=== PATIENT | male | born 1950 | race Caucasian/White ===

== ENCOUNTER 2017-01-12 07:45 | Emergency (ER) | payer MEDICARE, BC ==
[~2017-01-12] VITALS: Ht 162.6 cm; Wt 75.0 kg
[2017-01-12 07:54] VITALS: BP 130/77; PULSE 78; RESP 20; TEMP 99; O2SAT 95
[2017-01-12] MEDS ORDERED: STOO100C PO (08:17)
[2017-01-12] MEDS ORDERED: LEVE250 PO (08:17)
[2017-01-12] MEDS ORDERED: ONDA1TAB17 PO (08:17)
[2017-01-12] MEDS ORDERED: SULF1TAB23 PO (08:17)
[2017-01-12] MEDS ORDERED: ESOM1CAP6 PO (08:17)
--- NOTE | 2017-01-12 08:28 | PD ---
HPI Chief Complaint: Neuro Symptoms/ Deficits Time Seen by Provider: 07:55 Travel History International Travel<30 days: No Contact w/Intl Traveler<30days: No Traveled to known affect area: No History of Present Illness HPI This patient is vacationing from [place]. He has history of glioblastoma. He's been through surgery and chemotherapy and radiation for it. He had a recent MRI that shows that his tumor has reoccurred and his physician team doesn't have much more to offer and they advised him just to enjoy his last time here before he dies from the cancer. He's had right sided weakness for the last 2 weeks. He denies headache. He came to the emergency room because he had some tremulousness us morning for about or minutes.. He was awake and alert during it and watched his extremities trembling. There is no tongue biting or loss of consciousness or postictal state or incontinence. He does take Keppra as a preventative for seizures but is never had a seizure. Symptoms severity was moderate. No alleviating factors. Duration of the event 4 minutes PFSH Past Medical History Chemotherapy: Yes (brain tumor; last month) Social History Alcohol Use: No Tobacco Use: No Substance Use: No Allergies-Medications (Allergen,Severity, Reaction): Coded Allergies: Vancomycin (Verified Allergy, Severe, 01/12/17) swelling to IV site Reported Meds & Prescriptions Reported Meds & Active Scripts Active Reported Stool Softener (Docusate Sodium) 100 Mg Cap 1 Cap PO DAILY Nexium 24 HR (Esomeprazole DR) 20 Mg Capdr 20 Mg PO DAILY Ondansetron (Ondansetron HCl) 8 Mg Tab 8 Mg PO Q8HR PRN Sulfamethoxazole-Trimethoprim 800-160 Mg Tab 1 Tab PO BID PRN Keppra (Levetiracetam) 250 Mg Tab 500 Mg PO BID Review of Systems General / Constitutional: No: Fever Eyes: No: Visual changes HENT: No: Headaches Cardiovascular: No: Chest Pain or Discomfort Respiratory: No: Shortness of Breath Gastrointestinal: No: Abdominal Pain Genitourinary: No: Dysuria Musculoskeletal: Positive: Weakness, No: Pain Skin: No Rash Neurologic: Positive: Weakness, Tremor, No: Seizures Psychiatric: No: Depression Endocrine: No: Polydipsia Hematologic/Lymphatic: No: Easy Bruising Physical Exam Narrative GENERAL: Well-nourished, well-developed patient in no apparent distress. SKIN: Focused skin assessment reveals no rash and nodules. Skin is Warm and dry. HEAD: Atraumatic. Normocephalic. EYES: Pupils equal and round. No scleral icterus. No injection or drainage. ENT: No nasal bleeding or discharge. Mucous membranes pink and moist. NECK: Trachea midline. No JVD. CARDIOVASCULAR: Regular rate and rhythm. No murmur appreciated. RESPIRATORY: No accessory muscle use. Clear to auscultation. Breath sounds equal bilaterally. GASTROINTESTINAL: Abdomen soft, non-tender, nondistended. Hepatic and splenic margins not palpable. MUSCULOSKELETAL: No obvious deformities. No clubbing. No cyanosis. No edema. NEUROLOGICAL: Awake and alert. No obvious cranial nerve deficits. Motor exam shows weakness of the right arm and right leg when compared to the left. Normal speech. PSYCHIATRIC: Appropriate mood and affect; insight and judgment normal. Data Data Last Documented VS Vital Signs Date Time Temp Pulse Resp B/P Pulse Ox O2 Delivery O2 Flow Rate FiO2 01/12/17 09:00 80 20 144/89 97 Room Air 01/12/17 07:54 99.0 Orders Iv Access Insert/Monitor (01/12/17 08:12) Complete Blood Count With Diff (01/12/17 08:12) Basic Metabolic Panel (Bmp) (01/12/17 08:12) Labs Laboratory Tests Test 01/12/17 08:20 White Blood Count 7.3 TH/MM3 Red Blood Count 4.65 MIL/MM3 Hemoglobin 14.8 GM/DL Hematocrit 42.7 % Mean Corpuscular Volume 91.8 FL Mean Corpuscular Hemoglobin 31.9 PG Mean Corpuscular Hemoglobin 34.7 % Concent Red Cell Distribution Width 14.8 % Platelet Count 167 TH/MM3 Mean Platelet Volume 6.5 FL Neutrophils (%) (Auto) 61.4 % Lymphocytes (%) (Auto) 27.0 % Monocytes (%) (Auto) 10.0 % Eosinophils (%) (Auto) 1.2 % Basophils (%) (Auto) 0.4 % Neutrophils # (Auto) 4.5 TH/MM3 Lymphocytes # (Auto) 2.0 TH/MM3 Monocytes # (Auto) 0.7 TH/MM3 Eosinophils # (Auto) 0.1 TH/MM3 Basophils # (Auto) 0.0 TH/MM3 CBC Comment DIFF FINAL Differential Comment Sodium Level 141 MEQ/L Potassium Level 4.2 MEQ/L Chloride Level 107 MEQ/L Carbon Dioxide Level 28.2 MEQ/L Anion Gap 6 MEQ/L Blood Urea Nitrogen 12 MG/DL Creatinine 1.20 MG/DL Estimat Glomerular Filtration 60 ML/MIN Rate Random Glucose 108 MG/DL Calcium Level 8.3 MG/DL MDM Medical Decision Making Medical Screen Exam Complete: Yes Emergency Medical Condition: Yes Medical Record Reviewed: Yes Differential Diagnosis Glioblastoma, seizure, CVA Narrative Course I have reviewed the patient's electronic medical record. He is never been here before. I reviewed some of his medical paperwork he brought from [place] We had a lengthy discussion regarding what workup is appropriate in the emergency room. Given his history is findings are not unexpected. He was told by his physicians to enjoy his last time before this cancer takes him. He is taking is on Keppra dose right now. I doubt brain imaging would be helpful given he had recent brain MRI and has known tumor recurrence. IV placed CBC is normal Metabolic profile is normal Given his description of events it does not sound like true seizure activity. Maybe anxiety/panic related. Of course it could've been a seizure and is impossible to know with certainty. No incontinence or tongue injury or postictal state however. Patient was nervous about going home. I observed him for 3 hours and he had no evidence of seizure activity or any neurologic complaints and feels okay at this time Should follow-up with his doctor team in [place]. He is heading home. He will maintain his Keppra dosing Diagnosis Primary Impression: Tremor Additional Impression: Glioblastoma determined by biopsy of brain Additional Instructions: The patient was advised to follow up with their physician and return if they worsen. Med/Other Pt SpecificInfo: Other Disposition: 01 DISCHARGE HOME Condition: Stable Tomasz Molina MD Jan 12, 2017 08:28
[2017-01-12 08:46] LABS: AUTOMATED NEUTROPHIL # 4.5 TH/MM3 (1.8-7.7); BASOPHIL % 0.4 % (0.0-2.0); EOSINOPHIL # 0.1 TH/MM3 (0-0.4); EOSINOPHIL % 1.2 % (0.0-4.0); HEMATOCRIT 42.7 % (39.0-51.0); HEMO FLAGS DIFF FINAL; MEAN CELL VOLUME 91.8 FL (80.0-100.0); MEAN CORPUSCULAR HEMOGLOBIN 31.9 PG (27.0-34.0); MEAN CORPUSCULAR HGB CONC 34.7 % (32.0-36.0); NEUT % 61.4 % (16.0-70.0); PLATELET COUNT 167 TH/MM3 (150-450); RED BLOOD COUNT 4.65 MIL/MM3 (4.50-5.90); RED CELL DISTRIBUTION WIDTH 14.8 % (11.6-17.2); WHITE BLOOD COUNT 7.3 TH/MM3 (4.0-11.0)
[2017-01-12 09:00] VITALS: BP 144/89; PULSE 80; RESP 20; O2SAT 97
[2017-01-12 09:12] LABS: BICARBONATE 28.2 MEQ/L (21.0-32.0); POTASSIUM 4.2 MEQ/L (3.5-5.1)
[2017-01-12 11:13] VITALS: BP 130/90
== END 2017-01-12 11:25 | disposition home or self-care (01) ==
LOC: NEPE 07:45
DX: R25.1 Tremor, unspecified (principal); R53.1 Weakness; C71.9 Malignant neoplasm of brain, unspecified
CPT/HCPCS: 80048; 85025; 99283